=== PATIENT | male | born 1990 | race Two or more races ===

== ENCOUNTER 2022-12-28 13:39 | Emergency (ER) | payer OTHER ==
[~2022-12-28] VITALS: Ht 182.9 cm; Wt 87.9 kg
[2022-12-28 15:18] VITALS: BP 120/76
[2022-12-28] MEDS ORDERED: cefTRIAXone SOD 1,000 MG VL IM ONE (15:30)
[2022-12-28] MEDS ORDERED: TETANUS-DIPTH-ACEL PERTUSSIS 0.5ML SYR Tdap IM ONE (15:30)
[2022-12-28] MEDS ORDERED: CEPH-510 PO (15:34)
[2022-12-28] MEDS ORDERED: IBUP600T28 PO (15:34)
== END 2022-12-28 15:35 | disposition home or self-care (01) ==
LOC: ER 13:39
DX: S61.212A Laceration without foreign body of right middle finger without damage to nail, initial encounter (principal); J45.909 Unspecified asthma, uncomplicated; X78.8XXA Intentional self-harm by other sharp object, initial encounter; Y93.89 Activity, other specified; Y92.89 Other specified places as the place of occurrence of the external cause; Y99.8 Other external cause status
CPT/HCPCS: 12001; 73130; 90471; 90715; 96372; 99284; J0696